=== PATIENT | female | born 1970 | race Caucasian/White ===

== ENCOUNTER 2017-08-27 07:01 | Outpatient (CLI) | payer OTHER ==
--- NOTE | 2017-08-27 08:03 | Ultrasound Report ---
ULTRASOUND ABDOMEN INDICATION: Epigastric pain, functional dyspepsia, nausea. Gastritis. COMPARISON: None similar. FINDINGS: Abdominal sonography demonstrates diffuse hepatic echogenic coarsening. Grossly normal hepatic contours without focal suspicious lesions or biliary dilatation, to the extent assessed. Approximately 1 cm subtle echogenicity about the gallbladder neck with mild shadowing on the decubitus views may represent a calculus. Few low level gallbladder echoes as well, possibly technical artifact versus sludge. No pericholecystic fluid or positive sonographic Lindsay's sign. Gallbladder wall thickness is 1.9 mm. CBD caliber is 5.2 mm. Homogenous spleen, 10 cm in length. No ascites. Distal pancreatic body/tail obscured due to bowel gas. Grossly normal remainder visualized pancreas, IVC and nonaneurysmal abdominal aorta. No hydronephrosis. Right kidney is 9.2 x 4.2 x 4.7 cm with cortical thickness of 1 cm. Left kidney measures 10.3 x 5.2 x 5.9 cm with cortical thickness of 1.6 cm. CONCLUSION: Coarse/fatty liver and possible subtle cholelithiasis/gallbladder sludge, as described. Please correlate. Thank you for the opportunity to participate in this patient's care.
== END 2017-08-27 07:02 | disposition home or self-care (01) ==
LOC: US 07:01
PROVIDERS: ATTEND Internal Medicine Gastroenterology
DX: K30 Functional dyspepsia (principal); R11.0 Nausea; K21.9 Gastro-esophageal reflux disease without esophagitis; Z90.710 Acquired absence of both cervix and uterus; Z87.19 Personal history of other diseases of the digestive system
CPT/HCPCS: 76700